=== PATIENT | female | born 1935 | race Caucasian/White ===

== ENCOUNTER → 2016-05-17 | Outpatient (CLI) | payer MEDICARE, OTHER | LOC: MAMO 07:13 | DX: R92.8 Other abnormal and inconclusive findings on diagnostic imaging of breast (principal) ==

== ENCOUNTER 2021-02-15 20:31 | Inpatient (IN) | payer MEDICARE, OTHER ==
[~2021-02-15] VITALS: Ht 172.7 cm; Wt 122.5 kg
[~2021-02-15 20:31] MED LIST: BUMETANIDE0.25 MG/1 PO; DULCOLAX10 MG PR; ELIQUIS 5 MG TAB5 MG PO; HYDROCHLOROTHIA25 MG PO; IBUPROFEN600 MG PO; LOPRESSOR 25 MG25 MG PO; LOPRESSOR50 MG PO; NOVOLOG FL100 UNIT/1 SC; PRADAXA75 MG PO; TYLENOL325 MG PO
[2021-02-15 21:42] LABS: HEMOGLOBIN 7.2 gm/dl (12.3-15.3); RED BLOOD COUNT 2.36 M/UL (4.00-5.10); WHITE BLOOD COUNT 22.2 K/UL (4.5-11.0)
[2021-02-16] MEDS ORDERED: ELIQUIS5 MG PO (02:50)
[2021-02-16] MEDS ORDERED: HYDROCHLOROTHIA25 MG PO (02:51)
[2021-02-16] MEDS ORDERED: CLARITIN10 MG PO (02:53)
[2021-02-16] MEDS ORDERED: MULTI-VITAMIN1 EACH PO (02:54)
[2021-02-16 04:27] LABS: RED BLOOD COUNT 2.19 M/UL (4.00-5.10); WHITE BLOOD COUNT 20.2 K/UL (4.5-11.0)
[2021-02-16 04:38] LABS: HEMOGLOBIN 6.7 gm/dl (12.3-15.3)
[2021-02-18 12:34] LABS: ADENOVIRUS F 40/41 Not Detected (Negative); ASTROVIRUS Not Detected (Negative); CAMPYLOBACTER Not Detected (Negative); CRYPTOSPORIDIUM Not Detected (Negative); E.COLI 0157 Not Detected (Negative); ENTAMOEBA HISTOLYTICA Not Detected (Negative); ENTEROAGGREGATIVE E.COLI (EAEC Not Detected (Negative); ENTEROPATHOGENIC E.COLI (EPEC) Not Detected (Negative); ENTEROTOXIGENIC E.COLI (ETEC) Not Detected (Negative); GIARDIA LAMBLIA Not Detected (Negative); NOROVIRUS GI/GII Not Detected (Negative); PLESIOMONAS SHIGELLOIDES Not Detected (Negative); ROTOVIRUS A Not Detected (Negative); SALMONELLA Not Detected (Negative); SAPOVIRUS Not Detected (Negative); SHIG/ENTEROINVAS.ECOLI (EIEC) Not Detected (Negative); SHIGA-LIK TOX.PRO.E.COLI (STEC Not Detected (Negative); VIBRIO Not Detected (Negative); VIBRIO CHOLERAE Not Detected (Negative); YERSINIA ENTEROCOLITICA Not Detected (Negative)
[2021-02-18 15:21] LABS: CLOSTRIDIUM DIFFICILE TOX A/B DETECTED (Negative)
--- NOTE | 2021-02-18 16:29 | NUR ---
DR. MOHAN CALLED DUE TO LAB CALLING POSITIVE C DIFF RESULT. DR. MOHAN STATES IS NOT GOING TO TREAT AT THIS TIME DUE TO PT NOT HAVING DIARRHEA OR OTHER SYMPTOMS AT THIS TIME.
[2021-02-19 07:41] LABS: RED BLOOD COUNT 2.68 M/UL (4.00-5.10); WHITE BLOOD COUNT 12.1 K/UL (4.5-11.0)
[2021-02-22 13:54] LABS: RED BLOOD COUNT 2.98 M/UL (4.00-5.10); WHITE BLOOD COUNT 11.5 K/UL (4.5-11.0)
[2021-02-25 07:45] LABS: HEMOGLOBIN 8.2 gm/dl (12.3-15.3); RED BLOOD COUNT 2.87 M/UL (4.00-5.10)
[2021-02-25 07:50] LABS: WHITE BLOOD COUNT 8.6 K/UL (4.5-11.0)
[2021-02-25] MEDS ORDERED: LISINOPRIL10 MG PO (15:14)
[2021-02-25] MEDS ORDERED: HUMALOG 10100 UNITS/ SC (15:14)
[2021-02-25] MEDS ORDERED: PROTONIX 40 MG40 M1 PO (15:25)
== END 2021-02-26 15:55 | DRG 564 ==
LOC: ER1 20:31 → M/S 23:35 → CDU 23:35 → M/S 02-16 02:31
PROVIDERS: Internal Medicine; Preventive Medicine Occupational Medicine; ADMIT Internal Medicine
PROC: 30233N1 Transfusion of Nonautologous Red Blood Cells into Peripheral Vein, Percutaneous Approach (ICD-10-PCS; principal; 2021-02-16)
DX: T79.6XXA Traumatic ischemia of muscle, initial encounter (principal); G93.41 Metabolic encephalopathy; S82.141A Displaced bicondylar fracture of right tibia, initial encounter for closed fracture; N17.9 Acute kidney failure, unspecified; D62 Acute posthemorrhagic anemia; N30.00 Acute cystitis without hematuria; E86.0 Dehydration; W01.0XXA Fall on same level from slipping, tripping and stumbling without subsequent striking against object, initial encounter; M17.11 Unilateral primary osteoarthritis, right knee; I12.9 Hypertensive chronic kidney disease with stage 1 through stage 4 chronic kidney disease, or unspecified chronic kidney disease; N18.9 Chronic kidney disease, unspecified; E11.22 Type 2 diabetes mellitus with diabetic chronic kidney disease; Z20.822 Contact with and (suspected) exposure to COVID-19; B96.20 Unspecified Escherichia coli [E. coli] as the cause of diseases classified elsewhere; E66.9 Obesity, unspecified; F03.90 Unspecified dementia, unspecified severity, without behavioral disturbance, psychotic disturbance, mood disturbance, and anxiety; D64.9 Anemia, unspecified; I48.0 Paroxysmal atrial fibrillation; Z90.49 Acquired absence of other specified parts of digestive tract; Z98.890 Other specified postprocedural states; Z82.3 Family history of stroke
CPT/HCPCS: 36415; 36430; 70450; 71045; 72170; 73700; 80048; 80053; 81001; 82140; 82272; 82550; 82553; 82962; 83690; 83874; 83880; 84484; 85018; 85025; 85027; 85652; 86140; 86850; 86900; 86901; 86920; 87077; 87086; 87186; 87324; 87449; 87507; 93005; 97110; 97162; 97530; 97530-GP-CQ; 99285; C9113; G0378; J0696; J2405; J2550; J7050; P9016; Q9967; U0002